=== PATIENT | female | born 1945 | race African-American/Black ===

== ENCOUNTER 2019-02-21 13:51 | Emergency (ER) | payer MEDICARE, MEDICAID ==
[~2019-02-21] VITALS: Ht 165.1 cm; Wt 61.0 kg
[2019-02-21] MEDS ORDERED: SODIUM CHLORIDE 0.9% 1,000 ML IV ONE (14:22)
[2019-02-21] MEDS ORDERED: TRAMADOL 50MG TABLET PO ONE (14:45)
[2019-02-21 14:48] LABS: BASOPHILS % 0.5 % (0.0-2.0); HEMATOCRIT. 43.9 % (36.0-48.0); HEMOGLOBIN. 14.5 g/dL (12.0-16.0); LYMPHOCYTES % 19.3 % (20.0-50.0); MEAN CORPUSCULAR HEMOGLOBIN 30.1 pg (28.0-32.0); MEAN CORPUSCULAR VOLUME 91.4 fL (81.0-99.0); MEAN PLATELET VOLUME 9.1 fl (7.4-10.4); MONOCYTES % 6.5 % (2.0-8.0); NEUTROPHILS % 72.7 % (40.0-76.0); PLATELET 139 x1000/uL (130-400); RED BLOOD CELL COUNT 4.81 mill/uL (4.2-5.4); RED CELL DISTRIBUTION WIDTH 13.7 % (11.6-14.6)
[2019-02-21 14:52] LABS: CHLORIDE 102 mEq/L (98-107)
[2019-02-21 15:01] LABS: INR 1.1; PARTIAL THROMBOPLASTIN TIME 29.9 sec (23.4-31.0); PROTHROMBIN TIME 10.7 sec (9.1-11.1)
[2019-02-21] MEDS ORDERED: IOHEXOL-300 100 ML BOTTLE ONE (16:06)
[2019-02-21] MEDS ORDERED: KETOROLAC 30MG/ML VIAL IV ONE (17:15)
[2019-02-21 18:33] VITALS: BP 150/62
== END 2019-02-21 18:40 | disposition home or self-care (01) ==
LOC: ER 13:51
DX: S06.2X0A Diffuse traumatic brain injury without loss of consciousness, initial encounter (principal); S29.9XXA Unspecified injury of thorax, initial encounter; I10 Essential (primary) hypertension; R10.9 Unspecified abdominal pain; V49.88XA Car occupant (driver) (passenger) injured in other specified transport accidents, initial encounter; Y93.89 Activity, other specified; Y92.89 Other specified places as the place of occurrence of the external cause; Y99.8 Other external cause status
CPT/HCPCS: 36415; 70450; 71045; 71260; 72125; 74177; 80053; 83690; 83880; 84484; 85025; 85610; 85730; 93005; 96374; 99284; J1885; J7030; Q9967